=== PATIENT | female | born 1980 | race American Indian/Alaskan Native ===

== ENCOUNTER 2017-05-14 10:17 | Observation (INO) | payer MEDICAID ==
--- NOTE | 2017-05-14 10:55 | C.PDOC ---
History Of Present Illness NEW ONSET FOUL SMELLING PUS DC FROM UMBILICUS X 1 DAY. NO FEVER. +PAIN TO AREA. NO TRAUMA. PS NEEDS TO USE TAMPON TO UMBILICUS DUE TO PROFUSE AMOUNT EXAM NONTOXIC OBESE ABD SOFT +TEND UMBILICAL AREA. NO GROSS SWELL, EDEMA SKIN +PURULENT, FOUL SMELL FROM UMBILICUS. NO ERYTHEMA, VISUALIZED FOCAL DRAINING SITE. REMAINDER NEG Time Seen by Provider: 05/14/17 10:50 Chief Complaint (Nursing): Abnormal Skin Integrity History Per: Patient History/Exam Limitations: no limitations Onset/Duration Of Symptoms: Days (1) Past Medical History Reviewed: Historical Data, Nursing Documentation, Vital Signs Vital Signs: Last Vital Signs Temp 97.7 F 05/14/17 10:24 Pulse 83 05/14/17 10:24 Resp 18 05/14/17 10:24 BP 135/82 05/14/17 10:24 Pulse Ox 100 05/14/17 14:37 Family History: States: No Known Family Hx - Social History Hx Alcohol Use: No Hx Substance Use: No - Immunization History Hx Tetanus Toxoid Vaccination: No Hx Influenza Vaccination: No Hx Pneumococcal Vaccination: No Review Of Systems Except As Marked, All Systems Reviewed And Found Negative. Constitutional: Negative for: Fever Gastrointestinal: Negative for: Vomiting, Abdominal Pain Skin: Positive for: Other ((+) foul smelling pus discharge from umbilicus) Physical Exam - Physical Exam Appears: Non-toxic, No Acute Distress, Other ((+) obese) Skin: Warm, Dry, Other ((+) purulent, foul smell from umbilicus. (-) erythema, visualized focal draining site) Head: Atraumatic, Normacephalic Oral Mucosa: Moist Respiratory: Normal Breath Sounds Gastrointestinal/Abdominal: Soft, Tenderness (Umbilical area), No Guarding, No Rebound, Other (no gross swelling, no edema) Extremity: Normal ROM, No Swelling Neurological/Psych: Oriented x3, Normal Speech ED Course And Treatment - Laboratory Results Result Diagrams: 05/14/17 11:25 05/14/17 11:25 Urine POC: Negative O2 Sat by Pulse Oximetry: 100 (RA) Pulse Ox Interpretation: Normal - CT Scan/US CT - Abd & Pelvis w/ IV Contrast Other Rad Studies (CT/US): Read By Radiologist, Radiology Report Reviewed CT/US Interpretation: PROCEDURE: CT Abdomen and Pelvis with contrast. HISTORY : PURULENT DRAINAGE UMBILICUS. COMPARISON: None. TECHNIQUE: Contrast dose: Visipaque 320, 150 cc. Radiation dose: Total exam DLP = 1234.95 mGy-cm. This CT exam was performed using one or more of the following dose reduction techniques: Automated exposure control, adjustment of the mA and/or kV according to patient size, and/or use of iterative reconstruction technique. FINDINGS: LOWER THORAX: Borderline cardiomegaly. Linear atelectasis or fibrosis minimally capture of the bilateral bases which are otherwise unremarkable. Small hiatal hernia is captured. LIVER: Unremarkable. No gross lesion or ductal dilatation. GALLBLADDER AND BILE DUCTS: Unremarkable. PANCREAS: The head through body of pancreas appear unremarkable. However, at the origin of the level of the tail, there is a lucency which is well- circumscribed and measures 4.5 x 4.3 x 4.6 cm (transverse by anteroposterior by superoinferior dimensions). No septation or nodularity is seen related. This appears to be most intimately related to the pancreas and therefore may represent a pseudocyst or other pancreatic cyst. A less likely possibility would be gastric diverticulum though this is not favored does not appear to be nearly is associate with the stomach gas with the pancreas. Consider follow-up ultrasound. If the patient does not exceed weight limits, MRI can be performed with without contrast as well. SPLEEN: Unremarkable. ADRENALS: Unremarkable. No mass. KIDNEYS AND URETERS: Unremarkable. No hydronephrosis. No solid mass. VASCULATURE: Unremarkable. No aortic aneurysm. BOWEL: Unremarkable. No obstruction. No gross mural thickening. APPENDIX: Not clearly identified. No definitive pattern of appendicitis. PERITONEUM: Unremarkable. No free fluid. No free air. LYMPH NODES: Unremarkable. No enlarged lymph nodes. BLADDER: Unremarkable. REPRODUCTIVE: Unremarkable. BONES: No acute fracture. OTHER FINDINGS: gas is seen in the umbilicus with questionable thickening of the skin of the umbilicus. No prominent fluid collections appreciated to suggest a definitive abscess. A small fluid collection be difficult to completely exclude. The elevated noise level this examination related to the patient's obese body habitus degrades the quality examination. IMPRESSION: 1. Limited gas seen the within the lumen of the umbilicus is nonspecific. A prominent fluid collection is not apparent appears smaller collections are not completely excluded and difficult to evaluate due to prominent no age throughout this exam due to the patient's body habitus. Cellulitis would be difficult to completely exclude as well. 2. 4.6 cm cystic lesion related to the pancreatic tail, nonspecific in appearance. Consider pseudocyst though a cystic pattern or malignant pancreas neoplasm not completely excluded. Gastric diverticulum is felt to be less likely. Consider follow-up ultrasound and MRI on an elective basis. Progress - Re-Evaluation Re-evaluation Note: 05/14/17 14:32 EXAM UNCH VSS. APPEARS COMFORTABLE. PT AGREES W ADMISSION. PENDING CALLBACK PMD 05/14/17 14:[address] BATRES OFFICE SHE IS AWAY AND HAS NO COVERING MD. 05/14/17 14:39 D/W DR Julianna LUNDBERG JEWELRY MODEL MAKER WILL ADMIT - Data Reviewed Data Reviewed: Lab, Diagnostic imaging Medical Decision Making Medical Decision Making: PLAN: * CT - Abd & Pelvis * CBC * BMP * Zoysn IV Disposition Counseled Patient/Family Regarding: Studies Performed, Diagnosis - Disposition Disposition: HOSPITALIZED Disposition Time: 14:39 Condition: STABLE Forms: [employer] (Romanian) - POA Present On Arrival: None - Clinical Impression Clinical Impression: Abdominal wall cellulitis - Scribe Statement The provider has reviewed the documentation as recorded by the Shelliibe Xiomara Armstrong Provider Attestation: All medical record entries made by the Seun were at my direction and personally dictated by me. I have reviewed the chart and agree that the record accurately reflects my personal performance of the history, physical exam, medical decision making, and the department course for this patient. I have also personally directed, reviewed, and agree with the discharge instructions and disposition. Decision To Admit - Pt Status Changed To: Hospital Disposition Of: Observation - . Bed Request Type: Regular Admitting Physician: Mike Zhou Patient Diagnosis: Abdominal wall cellulitis
[2017-05-14] MEDS ORDERED: Piperacillin/Tazobact 3.375 gm 100 ML IV STA (10:56)
[2017-05-14 11:30] LABS: BASO % 0.7 % (0.0-2.0); EOS # 0.1 K/uL (0.0-0.7); EOS % 1.3 % (0.0-4.0); HEMATOCRIT 34.7 % (34.0-47.0); LYMPH # 1.2 K/uL (1.0-4.3); LYMPH % 18.1 % (20.0-40.0); MEAN CELL VOLUME 87.2 fL (81.0-99.0); MEAN CORPUSCULAR HEMOGLOBIN 30.1 pg (27.0-31.0); MEAN CORPUSCULAR HGB CONC 34.6 g/dL (33.0-37.0); MEAN PLATELET VOLUME 10.6 fL (7.2-11.7); MONO # 0.6 K/uL (0.0-0.8); MONO % 8.4 % (0.0-10.0); WHITE BLOOD COUNT 6.8 K/uL (4.8-10.8)
[2017-05-14 11:48] LABS: BLOOD UREA NITROGEN 14 mg/dL (7-17); CALCIUM 8.1 mg/dl (8.6-10.4); CARBON DIOXIDE 25 mmol/L (22-30); CHLORIDE 103 mmol/L (98-107); GFR AFRICAN-AMERICAN > 60; GLUCOSE,RANDOM 85 mg/dL (65-105); POTASSIUM 3.9 mmol/L (3.6-5.2); SODIUM 134 mmol/L (132-148)
[2017-05-14] MEDS ORDERED: Piperacill/Tazo 3.375gm in Dex 3.375 GM/50 ML BAG IVPB ONE (13:00)
[2017-05-14] MEDS ORDERED: Iodixanol 320 mg/ml 150 ml Bottle IV ONE (13:41)
--- NOTE | 2017-05-14 14:24 | CT ---
PROCEDURE: CT Abdomen and Pelvis with contrast HISTORY: PURULENT DRAINAGE UMBILICUS COMPARISON: None. TECHNIQUE: Contrast dose: Visipaque 320, 150 cc. Radiation dose: Total exam DLP = 1234.95 mGy-cm. This CT exam was performed using one or more of the following dose reduction techniques: Automated exposure control, adjustment of the mA and/or kV according to patient size, and/or use of iterative reconstruction technique. FINDINGS: LOWER THORAX: Borderline cardiomegaly. Linear atelectasis or fibrosis minimally capture of the bilateral bases which are otherwise unremarkable. Small hiatal hernia is captured. LIVER: Unremarkable. No gross lesion or ductal dilatation. GALLBLADDER AND BILE DUCTS: Unremarkable. PANCREAS: The head through body of pancreas appear unremarkable. However, at the origin of the level of the tail, there is a lucency which is well-circumscribed and measures 4.5 x 4.3 x 4.6 cm (transverse by anteroposterior by superoinferior dimensions). No septation or nodularity is seen related. This appears to be most intimately related to the pancreas and therefore may represent a pseudocyst or other pancreatic cyst. A less likely possibility would be gastric diverticulum though this is not favored does not appear to be nearly is associate with the stomach gas with the pancreas. Consider follow-up ultrasound. If the patient does not exceed weight limits, MRI can be performed with without contrast as well. SPLEEN: Unremarkable. ADRENALS: Unremarkable. No mass. KIDNEYS AND URETERS: Unremarkable. No hydronephrosis. No solid mass. VASCULATURE: Unremarkable. No aortic aneurysm. BOWEL: Unremarkable. No obstruction. No gross mural thickening. APPENDIX: Not clearly identified. No definitive pattern of appendicitis. PERITONEUM: Unremarkable. No free fluid. No free air. LYMPH NODES: Unremarkable. No enlarged lymph nodes. BLADDER: Unremarkable. REPRODUCTIVE: Unremarkable. BONES: No acute fracture. OTHER FINDINGS: gas is seen in the umbilicus with questionable thickening of the skin of the umbilicus. No prominent fluid collections appreciated to suggest a definitive abscess. A small fluid collection be difficult to completely exclude. The elevated noise level this examination related to the patient's obese body habitus degrades the quality examination. IMPRESSION: 1. Limited gas seen the within the lumen of the umbilicus is nonspecific. A prominent fluid collection is not apparent appears smaller collections are not completely excluded and difficult to evaluate due to prominent no age throughout this exam due to the patient's body habitus. Cellulitis would be difficult to completely exclude as well. 2. 4.6 cm cystic lesion related to the pancreatic tail, nonspecific in appearance. Consider pseudocyst though a cystic pattern or malignant pancreas neoplasm not completely excluded. Gastric diverticulum is felt to be less likely. Consider follow-up ultrasound and MRI on an elective basis.
--- NOTE | 2017-05-14 17:39 | CP.PCM.HP ---
Past Patient History - Past Social History Smoking Status: Never Smoked - PSYCHIATRIC Hx Substance Use: No - SURGICAL HISTORY Hx Surgeries: No - ANESTHESIA Hx Anesthesia: No Meds Allergies/Adverse Reactions: Allergies Allergy/AdvReac Type Severity Reaction Status Date / Time latex Allergy Verified 05/14/17 10:22 Physical Exam - Constitutional Appears: Well - Head Exam Head Exam: ATRAUMATIC, NORMAL INSPECTION, NORMOCEPHALIC - Eye Exam Eye Exam: EOMI, Normal appearance, PERRL Pupil Exam: NORMAL ACCOMODATION, PERRL - ENT Exam ENT Exam: Mucous Membranes Moist, Normal Exam - Neck Exam Neck exam: Positive for: Normal Inspection - Respiratory Exam Respiratory Exam: Decreased Breath Sounds - Cardiovascular Exam Cardiovascular Exam: REGULAR RHYTHM, +S1, +S2 - GI/Abdominal Exam GI & Abdominal Exam: Diminished Bowel Sounds, Soft - Rectal Exam Rectal Exam: Deferred Results - Vital Signs Recent Vital Signs: Last Vital Signs Temp 98 F 05/14/17 16:46 Pulse 80 05/14/17 16:46 Resp 18 05/14/17 16:46 BP 118/78 05/14/17 16:46 Pulse Ox 98 05/14/17 16:46 - Labs Result Diagrams: 05/14/17 11:25 05/14/17 11:25 Labs: Laboratory Results - last 24 hr 05/14/17 05/14/17 11:25 11:25 WBC 6.8 RBC 3.98 Hgb 12.0 Hct 34.7 MCV 87.2 MCH 30.1 MCHC 34.6 RDW 14.0 Plt Count 162 MPV 10.6 Neut % (Auto) 71.5 Lymph % (Auto) 18.1 L Schleicher % (Auto) 8.4 Eos % (Auto) 1.3 Baso % (Auto) 0.7 Neut # 4.8 Lymph # 1.2 Schleicher # 0.6 Eos # 0.1 Baso # 0.0 Sodium 134 Potassium 3.9 Chloride 103 Carbon Dioxide 25 Anion Gap 10 BUN 14 Creatinine 0.8 Est GFR ( Amer) > 60 Est GFR (Non-Af Amer) > 60 Random Glucose 85 Calcium 8.1 L
--- NOTE | 2017-05-14 21:01 | CP.PCM.CON ---
History of Present Illness - History of Present Illness History of Present Illness: INFECTIOUS DISEASE CONSULT; Patient seen and chart reviewed. CT OF THE ABDOMEN AND PELVIS WITH iv CONTRAST REVIEWED. CONSULT DICTATED.# DICTATION NUMBER [id number]. ANTIBIOTICS ADJUSTED; F/U CULTURES TO ADJUST ANTIBIOTICS. CASE DISCUSSED WITH THE STAFF. CONTINUE iv zOSYN 3.375 EVERY 6 HOURLY.05/14/17 ADD IV VANCOMYCIN 1250 MG iv PIGGYBACK EVERY 12 HOURLY 05/14/17. F/U VANCO TROUGH LEVEL PRIOR TO THE FOURTH DOSE AND KEEP IT BETWEEN 10 AND 20. MONITOR RENAL FUNCTIONS CLOSELY. WILL FOLLOW AND MAKE ADJUSTMENTS IN ANTIBIOTICS NEEDED. THANKS. Past Patient History - Past Social History Smoking Status: Never Smoked - PSYCHIATRIC Hx Substance Use: No - SURGICAL HISTORY Hx Surgeries: No - ANESTHESIA Hx Anesthesia: No Meds Allergies/Adverse Reactions: Allergies Allergy/AdvReac Type Severity Reaction Status Date / Time latex Allergy Verified 05/14/17 10:22 - Medications Medications: Current Medications Enoxaparin Sodium (Lovenox) 40 mg SC DAILY [facility] Piperacillin Sod/Tazobactam Sod (Zosyn 3.375 Gm Iv Premix) 3.375 gm in 50 mls @ 100 mls/hr IVPB Q6H [facility] Vancomycin HCl 1,250 mg/ (Sodium Chloride) 250 mls @ 166.6 mls/hr IVPB Q12H [facility] Pantoprazole Sodium (Protonix Ec Tab) 40 mg PO DAILY [facility] Results - Vital Signs Recent Vital Signs: Last Vital Signs Temp 97.4 F L 05/14/17 17:30 Pulse 69 05/14/17 17:30 Resp 20 05/14/17 17:30 BP 131/82 05/14/17 17:30 Pulse Ox 96 05/14/17 17:30 - Labs Result Diagrams: 05/15/17 06:08 05/15/17 06:08 Labs: Laboratory Results - last 24 hr 05/14/17 05/14/17 11:25 11:25 WBC 6.8 RBC 3.98 Hgb 12.0 Hct 34.7 MCV 87.2 MCH 30.1 MCHC 34.6 RDW 14.0 Plt Count 162 MPV 10.6 Neut % (Auto) 71.5 Lymph % (Auto) 18.1 L Rush % (Auto) 8.4 Eos % (Auto) 1.3 Baso % (Auto) 0.7 Neut # 4.8 Lymph # 1.2 Rush # 0.6 Eos # 0.1 Baso # 0.0 Sodium 134 Potassium 3.9 Chloride 103 Carbon Dioxide 25 Anion Gap 10 BUN 14 Creatinine 0.8 Est GFR ( Amer) > 60 Est GFR (Non-Af Amer) > 60 Random Glucose 85 Calcium 8.1 L
[2017-05-14] MEDS: Piperacill/Tazo 3.375gm in Dex 3.375 GM/50 ML BAG IVPB SCH (21:45)
--- NOTE | 2017-05-15 00:27 | CP.PCM.CON ---
History of Present Illness - History of Present Illness History of Present Illness: General Surgery: Dr Beaver Pt is a 37F, morbidly obese, no other PMH, who presents with ~24 hours of foul purulent drainage from umbilicus. Pt states she was noticing it was tender yesterday and went to clear out her belly button with a q-tip and thats when she noticed the foul smell and output. Pt demonstrated a picture of yellow/ brown puss that she was able to express. She denies any fevers, chills, nausea or vomiting. She has never had this before. Denies any past surgical history. Denies any injury to previous skin lesions to the area. No previous abscesses in any other locations. PMH: denies PSH: denies Review of Systems - Review of Systems All systems: reviewed and no additional remarkable complaints except (as per hpi ) Past Patient History - Past Medical History & Family History Past Medical History?: No - Past Social History Smoking Status: Never Smoked - MUSCULOSKELETAL/RHEUMATOLOGICAL Hx Falls: No - PSYCHIATRIC Hx Substance Use: No - SURGICAL HISTORY Hx Surgeries: No - ANESTHESIA Hx Anesthesia: No Meds Allergies/Adverse Reactions: Allergies Allergy/AdvReac Type Severity Reaction Status Date / Time latex Allergy Verified 05/14/17 10:22 - Medications Medications: Current Medications Enoxaparin Sodium (Lovenox) 40 mg SC DAILY [facility] Piperacillin Sod/Tazobactam Sod (Zosyn 3.375 Gm Iv Premix) 3.375 gm in 50 mls @ 100 mls/hr IVPB Q6H [facility] Last Admin: 05/14/17 21:45 Dose: 100 mls/hr Vancomycin HCl 1,250 mg/ (Sodium Chloride) 250 mls @ 166.6 mls/hr IVPB Q12H [facility] Last Admin: 05/14/17 22:36 Dose: 166.6 mls/hr Pantoprazole Sodium (Protonix Ec Tab) 40 mg PO DAILY [facility] Pneumococcal Polyvalent Vaccine (Pneumovax 23 Vaccine) 0.5 ml IM .ONCE ONE Stop: 05/16/17 10:01 Physical Exam - Constitutional Appears: Non-toxic, No Acute Distress Additional comments: obese - Eye Exam Eye Exam: Normal appearance - Respiratory Exam Respiratory Exam: absent: Accessory Muscle Use, Respiratory Distress - Cardiovascular Exam Cardiovascular Exam: REGULAR RHYTHM. absent: Tachycardia - GI/Abdominal Exam GI & Abdominal Exam: Soft, Tenderness (around umbilicus). absent: Distended, Firm, Guarding, Mass Additional comments: there is purulent drainage from umbilicus, the opening to the abscess is too deep to appreciate with the bedside lighting - Extremities Exam Extremities exam: Negative for: pedal edema - Neurological Exam Neurological exam: Alert, Oriented x3 Results - Vital Signs Recent Vital Signs: Last Vital Signs Temp 97.4 F L 05/15/17 00:00 Pulse 74 05/15/17 00:00 Resp 20 05/15/17 00:00 BP 106/67 05/15/17 00:00 Pulse Ox 96 05/15/17 00:00 - Labs Result Diagrams: 05/14/17 11:25 05/14/17 11:25 Labs: Laboratory Results - last 24 hr 05/14/17 05/14/17 11:25 11:25 WBC 6.8 RBC 3.98 Hgb 12.0 Hct 34.7 MCV 87.2 MCH 30.1 MCHC 34.6 RDW 14.0 Plt Count 162 MPV 10.6 Neut % (Auto) 71.5 Lymph % (Auto) 18.1 L Wharton % (Auto) 8.4 Eos % (Auto) 1.3 Baso % (Auto) 0.7 Neut # 4.8 Lymph # 1.2 Wharton # 0.6 Eos # 0.1 Baso # 0.0 Sodium 134 Potassium 3.9 Chloride 103 Carbon Dioxide 25 Anion Gap 10 BUN 14 Creatinine 0.8 Est GFR ( Amer) > 60 Est GFR (Non-Af Amer) > 60 Random Glucose 85 Calcium 8.1 L Assessment & Plan - Assessment and Plan (Free Text) Assessment: 37F with umbilical abscess Plan: IV fluids IV abx NPO @ [facility] for incision and drainage but pending attending evaluation will d/w Dr Beaver in [place], PGY3
[2017-05-15] MEDS: Piperacill/Tazo 3.375gm in Dex 3.375 GM/50 ML BAG IVPB SCH ×4 (02:45→20:54)
[2017-05-15 06:20] LABS: BASO % 0.7 % (0.0-2.0); EOS # 0.1 K/uL (0.0-0.7); EOS % 2.9 % (0.0-4.0); HEMATOCRIT 31.6 % (34.0-47.0); LYMPH # 1.3 K/uL (1.0-4.3); LYMPH % 25.2 % (20.0-40.0); MEAN CELL VOLUME 86.7 fL (81.0-99.0); MEAN CORPUSCULAR HEMOGLOBIN 29.9 pg (27.0-31.0); MEAN CORPUSCULAR HGB CONC 34.5 g/dL (33.0-37.0); MEAN PLATELET VOLUME 10.7 fL (7.2-11.7); MONO # 0.4 K/uL (0.0-0.8); RED CELL DISTRIBUTION WIDTH 13.7 % (11.5-14.5)
[2017-05-15] MEDS: Sodium Chloride 0.9% 1,000 ML IV SCH (06:36)
[2017-05-15 08:18] LABS: ALKALINE PHOSPHATASE 36 U/L (38-126); ALT/SGPT 23 U/L (9-52); AMYLASE 41 U/L (30-110); AST/SGOT 17 U/L (14-36); BILIRUBIN,TOTAL 0.7 mg/dL (0.2-1.3); BLOOD UREA NITROGEN 14 mg/dL (7-17); CALCIUM 7.7 mg/dl (8.6-10.4); CARBON DIOXIDE 23 mmol/L (22-30); CHLORIDE 103 mmol/L (98-107); GFR AFRICAN-AMERICAN > 60; GLUCOSE,RANDOM 96 mg/dL (65-105); POTASSIUM 3.6 mmol/L (3.6-5.2); SODIUM 132 mmol/L (132-148); TOTAL PROTEIN 5.9 g/dL (6.3-8.3)
[2017-05-15 08:19] LABS: ALB/GLOB RATIO 1.1 (1.0-2.1); BILIRUBIN,DIRECT 0.4 mg/dL (0.0-0.4)
[2017-05-15] MEDS: Pantoprazole 40 mg EC Tab PO SCH (09:49)
[2017-05-15] MEDS ORDERED: Enoxaparin 40 mg Syringe SC SCH (10:00)
[2017-05-15] MEDS ORDERED: Midazolam 2 MG/2 ML VIAL ONE ×2 (14:36→15:47)
[2017-05-15] MEDS ORDERED: Propofol 10 mg/ml Inj (20 ML) ONE (14:37)
[2017-05-15] MEDS ORDERED: Lactated Ringer's 1,000 ML IV ONE (15:00)
--- NOTE | 2017-05-15 15:39 | PCM.SURG1 ---
Surgeon's Initial Post Op Note - Surgeon's Notes Surgeon: Dr. Beaver Commercial Intern: Champ PGY1 Type of Anesthesia: General Endo Pre-Operative Diagnosis: Omphalitis Operative Findings: Deep umbilical collection; See operative report Post-Operative Diagnosis: same Operation Performed: Exploration of umbilicus wiht removal of deep umbilical collection Specimen/Specimens Removed: none Estimated Blood Loss: EBL {In ML}: 0 Blood Products Given: N/A Drains Used: No Drains Post-Op Condition: Good Date of Surgery/Procedure: 05/15/17 Time of Surgery/Procedure: 15:39
--- NOTE | 2017-05-15 15:47 | CP.PCM.PN ---
Subjective - Date & Time of Evaluation Date of Evaluation: 05/15/17 Time of Evaluation: 15:41 - Subjective Subjective: A/P: 37yo F with Omphalitis. S/P umbilical exploration and removal of deep umbilical collection on 05/15/17. - Patient is cleared for discharge from surgical standpoint. - Continue Abx as per Primary and ID teams. - Follow up with Dr. Beaver on Saturday Morning, in office. Call for appointment - Keep Xeroform packing in place until Saturday, 05/17. - Replace dressing as needed with dry gauze. You may shower, no soaking, no bathing, no pools. Further recs as per Dr. Sd Oakes PGY1 surgery pager: [phone] Objective - Vital Signs/Intake and Output Vital Signs (last 24 hours): Temp Pulse Resp BP Pulse Ox 97.7 F 66 20 94/61 L 97 05/15/17 07:31 05/15/17 07:31 05/15/17 07:31 05/15/17 07:31 05/15/17 07:31 Intake and Output: 05/15/17 05/15/17 06:59 18:59 Intake Total 850 800 Balance 850 800 - Medications Medications: Current Medications Piperacillin Sod/Tazobactam Sod (Zosyn 3.375 Gm Iv Premix) 3.375 gm in 50 mls @ 100 mls/hr IVPB Q6H [facility] Last Admin: 05/15/17 14:18 Dose: Not Given Vancomycin HCl 1,250 mg/ (Sodium Chloride) 250 mls @ 166.6 mls/hr IVPB Q12H [facility] Last Admin: 05/15/17 09:49 Dose: 166.6 mls/hr Sodium Chloride (Sodium Chloride 0.9%) 1,000 mls @ 100 mls/hr IV .Q10H [facility] Last Admin: 05/15/17 06:36 Dose: 100 mls/hr Ketorolac Tromethamine (Toradol) 30 mg IVP ONCE PRN PRN Reason: Pain, moderate (4-7) Stop: 05/15/17 17:39 Ondansetron HCl (Zofran Inj) 4 mg IVP ONCE PRN PRN Reason: Nausea/Vomiting Stop: 05/15/17 17:39 Pantoprazole Sodium (Protonix Ec Tab) 40 mg PO DAILY [facility] Last Admin: 05/15/17 09:49 Dose: 40 mg Pneumococcal Polyvalent Vaccine (Pneumovax 23 Vaccine) 0.5 ml IM .ONCE ONE Stop: 05/16/17 10:01 - Labs Labs: 05/15/17 06:08 05/15/17 06:08
[2017-05-15] MEDS ORDERED: Midazolam 2 MG/2 ML VIAL IVP ONE (16:23)
--- NOTE | 2017-05-15 19:41 | CP.PCM.PN ---
Subjective - Date & Time of Evaluation Date of Evaluation: 05/15/17 Time of Evaluation: 19:41 - Subjective Subjective: CHIEF COMPLAINTS TODAY : s/p OR TODAY Operative Findings: Deep umbilical collection; See operative report Post-Operative Diagnosis: same Operation Performed: Exploration of umbilicus wiht removal of deep umbilical collection WANTS SOMETHING FOR VAGINAL YEAST INFECTION ROS. HEENT : N. Resp : No SOB wheezing, cough Cardio : No CP, PND orthopnea GI : No abd. Pain, n/v. POST-OPT. DRESSING C/D/I COMMUNICATIONS ADMINISTRATOR : No headache , focal deficit. Musculoskel : N Ext. : Pedal pulses intact, no edema or calf pain Derm : N Psych : N. PE. Pt. is alert awake in no distress. V.S As noted in the chart Head ,ear nose,throat and eyes : Normal. Neck : Supple with normal carotids. Lungs: Clear air entry. Heart : S1 & S2 normal . . No murmur. S4 + Abd : Soft non tender with normal bowel sounds.POST-OPT. DRESSING C/D/I Neuro : Moves all ext. with no localized deficit. Ext : No edema with intact pulses. Neg. calf tenderness Derm : No rashes or decubitus ulcer. Radiology/Labs . ESR 23. CRP 9.O4 WOUND C/S -PENDING gram stain; .rare polymorphonuclears, many gram-negative rods, moderate gram- positive cocci in chains. Asssessment : UMBLICAL ABSCESS S/P I & D.05/15/17 VAGINITIS ( YEAST INFECTION ) HX OF PE/DVT (2014 ). MORBID OBESITY. Plan : CONTINUE IV ABX . F/U CULTURES TO ADJUST ABX. DIFLUCAN 200MG PO X 1 TODAY. LWC PER SURGERY. Objective - Vital Signs/Intake and Output Vital Signs (last 24 hours): Temp Pulse Resp BP Pulse Ox 98 F 58 L 9 L 102/44 L 99 05/15/17 16:30 05/15/17 16:30 05/15/17 16:30 05/15/17 16:30 05/15/17 16:30 Intake and Output: 05/15/17 05/16/17 18:59 06:59 Intake Total 800 Balance 800 - Medications Medications: Current Medications Piperacillin Sod/Tazobactam Sod (Zosyn 3.375 Gm Iv Premix) 3.375 gm in 50 mls @ 100 mls/hr IVPB Q6H [facility] Last Admin: 05/15/17 14:18 Dose: Not Given Vancomycin HCl 1,250 mg/ (Sodium Chloride) 250 mls @ 166.6 mls/hr IVPB Q12H [facility] Last Admin: 05/15/17 09:49 Dose: 166.6 mls/hr Sodium Chloride (Sodium Chloride 0.9%) 1,000 mls @ 100 mls/hr IV .Q10H [facility] Last Admin: 05/15/17 06:36 Dose: 100 mls/hr Pantoprazole Sodium (Protonix Ec Tab) 40 mg PO DAILY [facility] Last Admin: 05/15/17 09:49 Dose: 40 mg Pneumococcal Polyvalent Vaccine (Pneumovax 23 Vaccine) 0.5 ml IM .ONCE ONE Stop: 05/16/17 10:01 - Labs Labs: 05/15/17 06:08 05/15/17 06:08
--- NOTE | 2017-05-15 19:48 | CP.PCM.PN ---
Subjective - Date & Time of Evaluation Date of Evaluation: 05/15/17 Time of Evaluation: 08:00 - Subjective Subjective: clinically same Objective - Vital Signs/Intake and Output Vital Signs (last 24 hours): Temp Pulse Resp BP Pulse Ox 98 F 58 L 9 L 102/44 L 99 05/15/17 16:30 05/15/17 16:30 05/15/17 16:30 05/15/17 16:30 05/15/17 16:30 Intake and Output: 05/15/17 05/16/17 18:59 06:59 Intake Total 800 Balance 800 - Medications Medications: Current Medications Piperacillin Sod/Tazobactam Sod (Zosyn 3.375 Gm Iv Premix) 3.375 gm in 50 mls @ 100 mls/hr IVPB Q6H [facility] Last Admin: 05/15/17 14:18 Dose: Not Given Vancomycin HCl 1,250 mg/ (Sodium Chloride) 250 mls @ 166.6 mls/hr IVPB Q12H [facility] Last Admin: 05/15/17 09:49 Dose: 166.6 mls/hr Sodium Chloride (Sodium Chloride 0.9%) 1,000 mls @ 100 mls/hr IV .Q10H [facility] Last Admin: 05/15/17 06:36 Dose: 100 mls/hr Pantoprazole Sodium (Protonix Ec Tab) 40 mg PO DAILY [facility] Last Admin: 05/15/17 09:49 Dose: 40 mg Pneumococcal Polyvalent Vaccine (Pneumovax 23 Vaccine) 0.5 ml IM .ONCE ONE Stop: 05/16/17 10:01 - Labs Labs: 05/15/17 06:08 05/15/17 06:08
[2017-05-15 21:07] VITALS: RESP 20
[2017-05-16] MEDS: Sodium Chloride 0.9% 1,000 ML IV SCH ×2 (02:43→13:15)
[2017-05-16] MEDS: Piperacill/Tazo 3.375gm in Dex 3.375 GM/50 ML BAG IVPB SCH ×3 (02:47→14:15)
--- NOTE | 2017-05-16 04:03 | CON ---
DATE: REQUESTED BY: Dr. Geovany Zhou. REASON FOR CONSULTATION: Cellulitis and umbilical drainage. HISTORY OF PRESENT ILLNESS: The patient seen, chart reviewed, consultation as follows. The patient is a 37-year-old, pleasant, morbidly obese female with past medical history of pulmonary embolism and deep venous thrombosis in 2014, who states she was previously on Lovenox and developed hematoma at the abdominal site, and then switched to Eliquis and later on to Xarelto, now who presents with 24 hours of foul purulent drainage from the umbilicus. The patient states she noticed the drainage after she tried to clean the belly button with a cue tip, and a foul-smelling output poured out. She states it was yellowish brown pus, which she was able to express. She denies any fever, chills, nausea, or vomiting. She states that she has never had this before and has no history of soft tissue skin infections or abscesses in the past. She denies any injury to the previous skin lesion or to the area. A CT scan of the abdomen and pelvis was obtained with IV contrast, which was reviewed on 05/14 and showed some gas at the umbilicus with a 4.6 cm cystic mass also noted in the tail of the pancreas; questionable pseudocyst or malignant neoplasm as reported. Infectious Disease consultation was requested by PMD for further evaluation. The patient was appropriately started on Zosyn 3.375 q. 6 hourly by the PMD and in the ER after obtaining blood cultures and wound culture sensitivities. The patient denies any previous history of diabetes mellitus or hypertension or any heart disease. The patient is single and lives by herself. ALLERGIES: NO KNOWN ALLERGIES. PAST MEDICAL HISTORY: As above, history of pulmonary embolism and right DVT, was on anticoagulation as per her private MD, presently on Lovenox in the hospital. PAST SURGICAL HISTORY: Denies any previous surgical history. FAMILY HISTORY: Mother has history of diabetes mellitus, but after reaching menopause. Rest of the family were with normal health. IMMUNIZATIONS: She is not up-to-date on her influenza vaccination or pneumococcal vaccination. Denies any history of tetanus toxoid recently or in the recent past. SOCIAL HISTORY: She denies alcohol use or substance abuse. Denies smoking. REVIEW OF SYSTEMS: Except as marked, all system reviewed and found negative. CONSTITUTIONAL: Denies any history of fevers. CARDIOVASCULAR: Denies any chest pains or palpitations. RESPIRATORY: Denies any shortness of breath. GASTROINTESTINAL: Negative for nausea, vomiting, abdominal pain or diarrhea. : Unremarkable. SKIN: As reported above, foul-smelling pus discharge from the umbilicus. PHYSICAL EXAMINATION: GENERAL: The patient is awake, alert, not in any acute distress. VITAL SIGNS: Afebrile. Blood pressure 135/82, respirations 18, pulse of 83, pulse ox is 100% on room air. HEENT: Pupils equal, reactive to light and accommodation. Extraocular movements are full. Fundus is negative. Sclerae nonicteric. Conjunctivae normal. JVP not elevated. NECK: Appears to be supple. No lymphadenopathy appreciated, axillary or groin. Oral mucosa moist. No thrush. LUNGS: Fair air entry. CARDIOVASCULAR: S1, S2. No murmur or gallop. ABDOMEN: Soft, tenderness around the umbilical area. No guarding. No rebound. No gross swelling or edema. Minimal cellulitis noted with some soft tissue swelling around the umbilical region. EXTREMITIES: No cyanosis, clubbing or edema. GEOGRAPHIC INFORMATION SYSTEM ANALYST: No gross deficits. Speech is normal. Moves all extremities. Reflexes are equal and symmetrical. LABORATORY DATA: WBC is 6.8, H&H of 12.0 and 34.7, platelets 162. Creatinine 0.8, BUN of 14. Sugar was 85. Sodium 134. CT of the abdomen and pelvis with contrast as described above. Please go to the review of the final report. IMPRESSION: 1. Umbilical abscess and cellulitis. 2. History of pulmonary embolism and right deep venous thrombosis in 2015, on anticoagulation, presently on Lovenox. 3. Morbid obesity. 4. Questionable hypertension. PLAN: Suggest pancultures. We will get sed rate, C-reactive proteins. Follow up the wound culture sensitivities as done, and blood cultures. Continue IV Zosyn 3.375 q. 8 hourly. We will add IV vancomycin 1250 mg q. 12 hourly for MRSA coverage and strep coverage. Follow up vancomycin trough level prior to the 4th dose and notify me; keep it between 10 and 20. Surgical evaluation is in progress. Case discussed with the staff. We will follow along with you. The patient is n.p.o. as per enrollment services vice president for evaluation for surgery in a.. Thank you very much for allowing me to participate in the care of your patient. Cassy Kuo MD [facility] # [id number]
[2017-05-16 07:52] LABS: BASO % 0.1 % (0.0-2.0); LYMPH # 0.6 K/uL (1.0-4.3); LYMPH % 7.3 % (20.0-40.0); MEAN CELL VOLUME 87.1 fL (81.0-99.0); MEAN CORPUSCULAR HEMOGLOBIN 30.4 pg (27.0-31.0); MEAN CORPUSCULAR HGB CONC 34.9 g/dL (33.0-37.0); MEAN PLATELET VOLUME 11.2 fL (7.2-11.7); MONO # 0.4 K/uL (0.0-0.8); MONO % 4.7 % (0.0-10.0); NRBC % 0.1 % (0.0-2.0); PLATELET COUNT 183 K/uL (130-400)
[2017-05-16 07:55] LABS: WHITE BLOOD COUNT 8.2 K/uL (4.8-10.8)
--- NOTE | 2017-05-16 08:48 | CP.PCM.PN ---
Subjective - Date & Time of Evaluation Date of Evaluation: 05/16/17 Time of Evaluation: 08:40 - Subjective Subjective: Surgery Progress note. Dr. Beaver Pt seen and examined at bedside. No acute events overnight. States that she feels a bit better today. pain tolerable. No F/C. no new complaints. Objective - Vital Signs/Intake and Output Vital Signs (last 24 hours): Temp Pulse Resp BP Pulse Ox 97.6 F 67 20 123/73 96 05/16/17 08:16 05/16/17 08:16 05/16/17 08:16 05/16/17 08:16 05/16/17 08:16 Intake and Output: 05/16/17 05/16/17 06:59 18:59 Intake Total 900 Balance 900 - Medications Medications: Current Medications Piperacillin Sod/Tazobactam Sod (Zosyn 3.375 Gm Iv Premix) 3.375 gm in 50 mls @ 100 mls/hr IVPB Q6H [facility] Last Admin: 05/16/17 02:47 Dose: 100 mls/hr Vancomycin HCl 1,250 mg/ (Sodium Chloride) 250 mls @ 166.6 mls/hr IVPB Q12H [facility] Last Admin: 05/15/17 21:40 Dose: 166.6 mls/hr Sodium Chloride (Sodium Chloride 0.9%) 1,000 mls @ 100 mls/hr IV .Q10H [facility] Last Admin: 05/16/17 02:43 Dose: 100 mls/hr Pantoprazole Sodium (Protonix Ec Tab) 40 mg PO DAILY [facility] Last Admin: 05/15/17 09:49 Dose: 40 mg Pneumococcal Polyvalent Vaccine (Pneumovax 23 Vaccine) 0.5 ml IM .ONCE ONE Stop: 05/16/17 10:01 - Labs Labs: 05/16/17 07:29 05/15/17 06:08 - Constitutional Appears: Well, Non-toxic, No Acute Distress - Head Exam Head Exam: ATRAUMATIC, NORMAL INSPECTION, NORMOCEPHALIC - Eye Exam Eye Exam: EOMI - ENT Exam ENT Exam: Mucous Membranes Moist - Respiratory Exam Respiratory Exam: NORMAL BREATHING PATTERN. absent: Accessory Muscle Use, Respiratory Distress - Cardiovascular Exam Cardiovascular Exam: absent: JVD - GI/Abdominal Exam GI & Abdominal Exam: Soft. absent: Distended, Guarding, Rigid, Tenderness - Extremities Exam Extremities Exam: Normal Inspection. absent: Calf Tenderness - Neurological Exam Neurological Exam: Alert, Awake, Oriented x3 - Skin Skin Exam: Dry, Intact, Normal Color, Warm Additional comments: Abdominal dressing in place. Clean, dry and intact. Assessment and Plan - Assessment and Plan (Free Text) Assessment: 37yo F with Omphalitis. S/P umbilical exploration and removal of deep umbilical collection on 05/15/17. - Cleared for discharge from surgical standpoint. - Continue Abx - Follow up with Dr. Beaver on Saturday Morning, in office: [address] [place] [address]. Call for appointment - Keep Xeroform packing in place until Saturday, 05/17. - Replace dressing as needed with dry gauze. May shower; no soaking, no bathing , no pools. Further recs as per Dr. Sd Oakes PGY1 surgery pager: [phone]
[2017-05-16 08:55] LABS: ALKALINE PHOSPHATASE 43 U/L (38-126); ALT/SGPT 21 U/L (9-52); AST/SGOT 24 U/L (14-36); BILIRUBIN,TOTAL 0.4 mg/dL (0.2-1.3); BLOOD UREA NITROGEN 16 mg/dL (7-17); CALCIUM 7.9 mg/dl (8.6-10.4); CARBON DIOXIDE 23 mmol/L (22-30); CHLORIDE 105 mmol/L (98-107); GFR AFRICAN-AMERICAN > 60; GLUCOSE,RANDOM 126 mg/dL (65-105); POTASSIUM 3.9 mmol/L (3.6-5.2); SODIUM 133 mmol/L (132-148); TOTAL PROTEIN 6.7 g/dL (6.3-8.3)
[2017-05-16 09:20] LABS: NEUTROPHIL 88 % (50-75); TOTAL CELLS COUNTED 100
[2017-05-16] MEDS: Pantoprazole 40 mg EC Tab PO SCH (09:35)
[2017-05-16] MEDS ORDERED: Pneumococcal 23-Valent Vaccine IM ONE (10:00)
--- NOTE | 2017-05-16 10:48 | OP ---
PROCEDURE DATE: 05/15/2017 PREOPERATIVE DIAGNOSES: Omphalitis and umbilical abscess. POSTOPERATIVE DIAGNOSES: Omphalitis and umbilical abscess. PROCEDURE: Exploration of umbilicus with drainage of umbilical abscess. SURGEON: Lindsay Beaver MD. MANAGER SCIENTIFIC: Dr. Oakes. TYPE OF ANESTHESIA: General. DESCRIPTION OF PROCEDURE: With the patient in the supine position under adequate general anesthesia, the abdomen was prepped and draped in the usual sterile manner. A small amount of purulent drainage was noted at the umbilicus with a small amount of drainage noted from the umbilicus. A small mass was palpable at the umbilicus. A suction was passed into the umbilicus, which passed along a tract upward into the deep subcutaneous tissue of the umbilical stalk, which extended upward into the subcutaneous tissue and approximately 4 inches from the skin, a cavity containing purulent material was identified and purulent exudate was suctioned. The patient has central obesity and the tract extended in an upward direction for significant distance prior to the level of the fascia. No fascial defect was identified and the cavity was noted to be thick walled and somewhat irregular consistent with localized abscess. The cavity was irrigated and again suctioned and no additional material was removed and a wick of Xeroform was placed through the length of the umbilical stalk into the cavity to allow complete drainage, which was followed by a dry sterile dressing. The patient tolerated the procedure well and transferred to the recovery room in stable condition. Blood loss for the procedure was 0. Lindsay Beaver MD
--- NOTE | 2017-05-16 11:07 | CP.PCM.PN ---
Subjective - Date & Time of Evaluation Date of Evaluation: 05/16/17 Time of Evaluation: 10:00 - Subjective Subjective: PGY-[address] Julianna Zhou Patient seen and examined at bedside. No acute events overnight. Patient is tolerating diet well. Patient complains of pain at incision site. She denies having fever, chills, shortness of breath, chest pain, nausea, vomiting, or diarrhea. Objective - Vital Signs/Intake and Output Vital Signs (last 24 hours): Temp Pulse Resp BP Pulse Ox 97.6 F 67 20 123/73 96 05/16/17 08:16 05/16/17 08:16 05/16/17 08:16 05/16/17 08:16 05/16/17 08:16 Intake and Output: 05/16/17 05/16/17 06:59 18:59 Intake Total 900 Balance 900 - Medications Medications: Current Medications Piperacillin Sod/Tazobactam Sod (Zosyn 3.375 Gm Iv Premix) 3.375 gm in 50 mls @ 100 mls/hr IVPB Q6H [facility] Last Admin: 05/16/17 09:36 Dose: 100 mls/hr Vancomycin HCl 1,250 mg/ (Sodium Chloride) 250 mls @ 166.6 mls/hr IVPB Q12H [facility] Last Admin: 05/16/17 09:35 Dose: 166.6 mls/hr Sodium Chloride (Sodium Chloride 0.9%) 1,000 mls @ 100 mls/hr IV .Q10H [facility] Last Admin: 05/16/17 02:43 Dose: 100 mls/hr Pantoprazole Sodium (Protonix Ec Tab) 40 mg PO DAILY [facility] Last Admin: 05/16/17 09:35 Dose: 40 mg - Labs Labs: 05/16/17 07:29 05/16/17 07:29 - Constitutional Appears: Non-toxic, No Acute Distress - Head Exam Head Exam: ATRAUMATIC - Eye Exam Eye Exam: Normal appearance - ENT Exam ENT Exam: Mucous Membranes Moist - Neck Exam Neck Exam: Full ROM, Normal Inspection. absent: Lymphadenopathy - Respiratory Exam Respiratory Exam: Clear to Ausculation Bilateral, NORMAL BREATHING PATTERN. absent: Respiratory Distress - Cardiovascular Exam Cardiovascular Exam: +S1, +S2 - GI/Abdominal Exam GI & Abdominal Exam: Soft, Tenderness (at the incision site). absent: Rigid, Hernia Additional comments: obese abdomen Abdominal dressing in place. Clean, dry and intact. - Extremities Exam Extremities Exam: Normal Inspection. absent: Joint Swelling, Pedal Edema - Neurological Exam Neurological Exam: Alert, Awake, Oriented x3 - Psychiatric Exam Psychiatric exam: Normal Affect, Normal Mood - Skin Skin Exam: Dry, Warm Assessment and Plan - Assessment and Plan (Free Text) Assessment: Omphalitis -S/P umbilical exploration and removal of deep umbilical collection POD#1 -Patient will need to follow up with Dr. Beaver on 05/17/17 to have packing removed -Afebrile, no white count -Wound culture from 05/14/17 grew Corynebacterium species Vaginitis -Single dose Diflucan 150mg po given yesterday Obesity -Healthy lifestyle modifications were advised Patient is stable to be discharged per surgery team All management per Dr. Julianna Zhou
[2017-05-16 15:57] VITALS: BP 106/74; PULSE 69; TEMP 97.1; O2SAT 98
--- NOTE | 2017-05-16 17:25 | CP.PCM.PN ---
Subjective - Date & Time of Evaluation Date of Evaluation: 05/16/17 Time of Evaluation: 08:00 - Subjective Subjective: clinically same Objective - Vital Signs/Intake and Output Vital Signs (last 24 hours): Temp Pulse Resp BP Pulse Ox 97.1 F L 69 20 106/74 98 05/16/17 15:00 05/16/17 15:00 05/16/17 15:00 05/16/17 15:00 05/16/17 15:00 Intake and Output: 05/16/17 05/16/17 06:59 18:59 Intake Total 900 1310 Balance 900 1310 - Medications Medications: Current Medications Piperacillin Sod/Tazobactam Sod (Zosyn 3.375 Gm Iv Premix) 3.375 gm in 50 mls @ 100 mls/hr IVPB Q6H [facility] Last Admin: 05/16/17 14:15 Dose: 100 mls/hr Vancomycin HCl 1,250 mg/ (Sodium Chloride) 250 mls @ 166.6 mls/hr IVPB Q12H [facility] Last Admin: 05/16/17 09:35 Dose: 166.6 mls/hr Sodium Chloride (Sodium Chloride 0.9%) 1,000 mls @ 100 mls/hr IV .Q10H [facility] Last Admin: 05/16/17 13:15 Dose: Not Given Pantoprazole Sodium (Protonix Ec Tab) 40 mg PO DAILY [facility] Last Admin: 05/16/17 09:35 Dose: 40 mg - Labs Labs: 05/16/17 07:29 05/16/17 07:29
[2017-05-16] MEDS ORDERED: Nystatin 100,000 Units/ml Oral Susp 5 ml UD PO ONE (18:00)
--- NOTE | 2017-05-16 22:35 | CP.PCM.PN ---
Subjective - Date & Time of Evaluation Date of Evaluation: 05/16/17 Time of Evaluation: 22:36 - Subjective Subjective: AFEBRILE, FEELING BETTER, WOUND CULTURES -CORYNEBACTERIUM ?SKIN TAYLER. PT DC PER SURGERY NOTIFIED BY RN. TO F/U WITH SURGERY DR STOLL. CONTINUE ABX PO AUGMENTIN 875MG PO BID X 5DAYS. LWC PER SURGERY. Objective - Vital Signs/Intake and Output Vital Signs (last 24 hours): Temp Pulse Resp BP Pulse Ox 97.1 F L 69 20 106/74 98 05/16/17 15:00 05/16/17 15:00 05/16/17 15:00 05/16/17 15:00 05/16/17 15:00 Intake and Output: 05/16/17 05/17/17 18:59 06:59 Intake Total 1310 Balance 1310 - Labs Labs: 05/16/17 07:29 05/16/17 07:29 - Constitutional Appears: No Acute Distress - Head Exam Head Exam: NORMAL INSPECTION - Eye Exam Eye Exam: EOMI, PERRL - ENT Exam ENT Exam: Mucous Membranes Dry (ORAL ULCER ? APTHOUS ULCER) - Neck Exam Neck Exam: Normal Inspection - Respiratory Exam Respiratory Exam: Clear to Ausculation Bilateral - Cardiovascular Exam Cardiovascular Exam: REGULAR RHYTHM, +S1, +S2 - GI/Abdominal Exam GI & Abdominal Exam: Soft, Normal Bowel Sounds (+VE DRY DRESSING POST OPTIVE SITE.) - Extremities Exam Extremities Exam: absent: Calf Tenderness, Pedal Edema - Neurological Exam Neurological Exam: Alert, Awake, CN II-XII Intact, Normal Gait, Oriented x3 - Psychiatric Exam Psychiatric exam: Normal Mood - Skin Skin Exam: Normal Color, Warm Assessment and Plan - Assessment and Plan (Free Text) Assessment: UMBLICAL ABSCESS S/P I & D.05/15/17 VAGINITIS ( YEAST INFECTION ) HX OF PE/DVT (2014 ). MORBID OBESITY. Plan : DISCONTINUE IV ABX . PO ABX PER SURGERY NYSTATIN 5ML S/S BID X 5 DAYS DIFLUCAN 200MG PO OD X 3 DAYS. LWC PER SURGERY.
== END 2017-05-16 19:32 | disposition home or self-care (01) ==
LOC: C.ER 10:17 → C.9E 14:40 → C.3T 14:40
PROVIDERS: ADMIT Internal Medicine Nephrology; ATTEND Internal Medicine Nephrology
DX: L02.216 Cutaneous abscess of umbilicus (principal); L03.311 Cellulitis of abdominal wall; Z86.711 Personal history of pulmonary embolism; E66.01 Morbid (severe) obesity due to excess calories; Z68.43 Body mass index [BMI] 50.0-59.9, adult
CPT/HCPCS: 10060; 36415; 74177; 80048; 80053; 80076; 80202; 82150; 83690; 84703; 85025; 85651; 86140; 86301; 87070; 87081; 99284; G0378; J1100; J1885; J2250; J2405; J2543; J2704; J3010; J3370; J7040; J7120; Q9967